=== PATIENT | male | born 1995 | race African-American/Black ===

== ENCOUNTER 2022-09-05 16:50 | Emergency (ER) | payer BC ==
[2022-09-05] MEDS ORDERED: KETOROLAC 30 MG/ML INJ ONE (17:42)
[2022-09-05] MEDS ORDERED: ACETAMINOPHEN 500 MG TAB ONE (17:42)
[2022-09-05] MEDS ORDERED: NA CHLORIDE 0.9% 1,000 ML ONE (17:42)
[2022-09-05 17:50] LABS: Absolute Lymphocytes (CBC) 2.8 K/uL (0.7-4.9); Hematocrit 41.9 % (39.6-49.0); Lymphocytes % 13.8 % (15.3-44.8); MCV 87.6 fL (80-100); MPV 8.3 fL (7.6-11.3); RBC Red Blood Cell Count 4.78 M/uL (4.33-5.43)
[2022-09-05 17:59] LABS: Potassium 3.4 mEq/L (3.5-5.1); Troponin High Sensitivity 3.2 pg/mL (<58.9)
[2022-09-05 18:19] LABS: SARS-CoV-2 Antigen Rapid Res Negative (Negative)
[2022-09-05] MEDS ORDERED: CEFTRIAXONE 1000 MG/VIAL ONE (18:41)
--- NOTE | 2022-09-05 18:42 | RAD REPORT ---
EXAM DESCRIPTION: RAD - Chest Pa And Lat (2 Views) - 09/05/2022 6:34 pm CLINICAL HISTORY: CHEST PAIN COMPARISON: <Comparisons> FINDINGS: Lines: None. Lungs: Masslike right mid lung opacity. Pleural: No significant pleural effusions or pneumothorax. Cardiac: The heart size is within normal limits. Mediastinum: Within normal limits. Bones: No acute fractures. Other: None IMPRESSION: Masslike opacity in the right mid lung could reflect pneumonia. A chest CT is pending.
[2022-09-05 19:30] LABS: Platelet Estimate ADEQ
[2022-09-05 19:31] LABS: Blood Morphology Comment NOT SEEN (NOT SEEN)
--- NOTE | 2022-09-05 19:42 | RAD REPORT ---
EXAM DESCRIPTION: CT - Chest For Pe Angio - 09/05/2022 7:23 pm CLINICAL HISTORY: CHEST PAIN COMPARISON: No comparisons TECHNIQUE: Dynamically enhanced axial 3 mm thick images of the chest were obtained during administra tion of <100> mL Isovue 370 IV contrast. Coronal and oblique reconstruction images were generated and reviewed. Exam utilizes a protocol for optimal evaluation of pulmonary arterial tree. Maximum intensity projections 3D imaging was utilized All CT scans are performed using dose optimization technique as appropriate and may include automated exposure control or mA/KV adjustment according to patient size. FINDINGS: Chest Wall: No suspicious thyroid nodules or pathologic lymphadenopathy. Lungs: Predominantly consolidative airspace disease is present in the right upper lobe with other pat francis areas of nodularity ground-glass opacities also in the right upper lobe. There are a few scattere d nodular ground-glass opacities in the lower lungs. Pleura: No significant effusions or pneumothorax. Mediastinum/garrick: No pathologic lymphadenopathy. Pulmonary arteries/Aorta: No filling defect identified. No aortic aneurysm. Heart: No significant pericardial effusion. Normal heart size. Upper abdomen: No acute abnormality. Bones: No acute abnormality. IMPRESSION: Negative for pulmonary embolism. Multifocal airspace disease, predominantly in the right upper lobe were there is consolidation, is most consistent with pneumonia. Recommend 6 week-3 month follow-up chest radiograph to ensure resolution.
--- NOTE | 2022-09-05 19:50 | EDPHYS ---
Physician Documentation [facility] Name: Tristan Kidd Age: 27 yrs Sex: Male : 1995 Arrival Date: 09/05/2022 Time: 16:50 Bed 14 Private MD: ED Physician David Conde HPI: 09/05 17:06 This 27 yrs old Black Male presents to ER via Unassigned with complaints of Chest Pain, bs3 Breathing Difficulty. 17:06 The patient or guardian reports chest pain that is located primarily in the anterior bs3 aspect of right upper chest. The pain does not radiate. Associated signs and symptoms: The patient has no apparent associated signs or symptoms. The chest pain is described as sharp. Duration: The patient or guardian reports a single episode, that is still ongoing, and unchanged. Modifying factors: the symptoms are aggravated by breathing. 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 . Historical: - Allergies: 17:12 No Known Allergies; nj1 - PMHx: 17:12 Diabetes mellitus; nj1 - PSHx: 17:13 Lung surgery; nj1 - Immunization history:: Client reports receiving the 2nd dose of the Covid vaccine. - Social history:: Smoking status: Patient denies any tobacco usage or history of. ROS: 17:07 Constitutional: Negative for fever, chills bs3 17:07 All other systems are negative. Exam: 17:07 Constitutional: This is a well developed, well nourished patient who is awake, alert, bs3 and in no acute distress. Head/Face: Normocephalic, atraumatic. Eyes: Pupils equal round and reactive to light, extra-ocular motions intact. Lids and lashes normal. ENT: mmm, no posterior phyarngeal erythema Chest/axilla: Normal chest wall appearance and motion. Nontender with no deformity. No lesions are appreciated. Cardiovascular: tachycardic, no murmur Respiratory: Lungs have equal breath sounds bilaterally, clear to auscultation, no respiratory distress MS/ Extremity: Pulses equal, no cyanosis. Neurovascular intact. Full, normal range of motion. Neuro: Awake and alert, GCS 15, oriented to person, place, time, and situation. Cranial nerves II-XII grossly intact. Motor strength 5/5 in all extremities. Sensory grossly intact. 19:23 Sinus tachycardia at [address] elevations or depressions QTc 420 as interpreted by bs3 myself Vital Signs: 17:09 BP 124 / 85; Pulse 109; Resp 18; Temp 100.9(O); Pulse Ox 100% ; Weight 101.15 kg; nj1 Height 6 ft. 0 in. ; Pain 4/10; 18:47 BP 114 / 76; Pulse 84; Resp 18; Temp 99.4(O); Pulse Ox 100% on R/A; mb9 20:01 BP 118 / 78; Pulse 74; Resp 16; mb9 17:09 Body Mass Index 30.24 (101.15 kg, 182.88 cm) [facility] 17:09 Pain Scale: Adult nj MDM: 16:55 Patient medically screened. bs3 17:07 Data reviewed: vital signs, nurses notes. ED course: 27-year-old with right-sided bs3 pleuritic chest pain he is tachycardic at rest on my evaluation he is otherwise low risk for pulmonary embolism we will send a D-dimer to rule this out will rule out pneumothorax will rule out myocarditis he had a slight cough it could be pleurisy from his coughing however his pain seems out of proportion for this he denies ripping or tearing pain denies numbness tingling or weakness in his extremities not consistent with an aortic dissection. 19:49 ED course: Patient found to have an elevated D-dimer therefore did a CTA his work-up bs3 was consistent with pneumonia he has diabetes but is otherwise healthy will start on antibiotics return precautions given family at bedside understands return precautions as well. 09/05 17:06 Order name: CBC with Diff; Complete Time: 19:45 bs3 09/05 17:06 Order name: BMP; Complete Time: 18:28 bs3 09/05 17:06 Order name: Troponin High Sensitivity; Complete Time: 18:28 bs3 09/05 17:06 Order name: BNP; Complete Time: 18:28 bs3 09/05 17:06 Order name: D-Dimer; Complete Time: 18:28 3 09/05 17:16 Order name: Influenza Screen (a \T\ B); Complete Time: 19:08 3 09/05 17:16 Order name: SARS-COV-2 Antigen Rapid; Complete Time: 18:28 3 09/05 18:30 Order name: Blood Culture Adult (2) 3 09/05 18:30 Order name: Lactate w/ 2H reflex if indic.; Complete Time: 19:20 3 09/05 19:31 Order name: Manual Differential; Complete Time: 19:45 EDMS 09/05 16:55 Order name: XRAY Chest Pa And Lat (2 Views); Complete Time: 19:08 3 09/05 18:29 Order name: CT Chest For PE Angio; Complete Time: 19:45 3 09/05 18:30 Order name: EKG; Complete Time: 18:30 3 09/05 16:55 Order name: EKG - Nurse/Tech; Complete Time: 17:32 3 09/05 18:30 Order name: Accucheck; Complete Time: 18:31 3 09/05 18:30 Order name: Cardiac monitoring; Complete Time: 18:31 3 09/05 18:30 Order name: IV Saline Lock - Large Bore; Complete Time: 18:31 3 09/05 18:30 Order name: Labs collected and sent; Complete Time: 18:31 3 09/05 18:30 Order name: O2 Per Protocol; Complete Time: 18:31 3 09/05 18:30 Order name: O2 Sat Monitoring; Complete Time: 18:31 3 09/05 18:30 Order name: Vital Signs; Complete Time: 18:31 bs3 Administered Medications: 17:43 Drug: Acetaminophen PO 1000 mg Route: PO; mb9 17:43 Drug: Ketorolac IVP 15 mg Route: IVP; Site: right antecubital; mb9 17:43 Drug: NS 0.9% IV 500 ml Route: IV; Rate: bolus; Site: right antecubital; mb9 18:48 Drug: Rocephin IV 1 grams Route: IV; Rate: 1 bolus; Site: right antecubital; mb9 19:59 Drug: AZITHromycin PO 500 mg Route: PO; mb9 Disposition Summary: 09/05/22 19:50 Discharge Ordered Location: Home bs3 Problem: new bs3 Symptoms: have improved bs3 Condition: Stable bs3 Diagnosis - Pneumonia, unspecified organism bs3 Followup: bs3 - With: Private Physician - When: 5 - 6 days - Reason: Re-evaluation by your physician Discharge Instructions: - Discharge Summary Sheet bs3 - Community-Acquired Pneumonia, Adult, Flli-ri-Tcwl bs3 Forms: - Work release form bs3 - Medication Reconciliation Form bs3 - Thank You Letter bs3 - Antibiotic Education bs3 - Prescription Opioid Use bs3 Prescriptions: - azithromycin 250 mg Oral tablet - take 1 tablet by ORAL route daily; 5 tablet; Refills: 0, Product Selection bs3 Permitted - Augmentin 875-125 mg Oral Tablet - take 1 tablet by ORAL route every 12 hours for 10 days; 20 tablet; Refills: 0, bs3 Product Selection Permitted Signatures: Dispatcher [employer] David Martinez MD MD bs3 Franci Jenkins RN RN mb9 Emilee Parker RN RN nj1
--- NOTE | 2022-09-05 19:50 | ER ---
Nurse's Notes [facility] Name: Tristan Kidd Age: 27 yrs Sex: Male : 1995 Arrival Date: 09/05/2022 Time: 16:50 Bed 14 Private MD: Diagnosis: Pneumonia, unspecified organism Presentation: 09/05 17:09 Chief complaint: Patient states: Chest pain since last night, got worse this morning. nj1 Unable to take a deep breath. Coronavirus screen: Vaccine status: Patient reports receiving the 2nd dose of the covid vaccine. Ebola Screen: Patient denies travel to an Ebola-affected area in the 21 days before illness onset. Initial Sepsis Screen: Does the patient meet any 2 criteria? HR > 90 bpm. No. Patient's initial sepsis screen is negative. Does the patient have a suspected source of infection? No. Patient's initial sepsis screen is negative. Risk Assessment: Do you want to hurt yourself or someone else? Patient reports no desire to harm self or others. Onset of symptoms was September 04, 2022. 17:09 Method Of Arrival: Ambulatory [facility] 17:09 Acuity: SOLANGE 3 nj1 Historical: - Allergies: 17:12 No Known Allergies; nj1 - PMHx: 17:12 Diabetes mellitus; nj1 - PSHx: 17:13 Lung surgery; nj1 - Immunization history:: Client reports receiving the 2nd dose of the Covid vaccine. - Social history:: Smoking status: Patient denies any tobacco usage or history of. Screenin:03 [facility] ED Fall Risk Assessment (Adult) History of falling in the last 3 months, 9 including since admission No falls in past 3 months (0 pts) Confusion or Disorientation No (0 pts) Intoxicated or Sedated No (0 pts) Impaired Gait No (0 pts) Mobility Assist Device Used No (0 pt) Altered Elimination No (0 pt) Score/Fall Risk Level 0 - 2 = Low Risk Oriented to surroundings, Maintained a safe environment, Educated pt \T\ family on fall prevention, incl call for assistance when getting out of bed. Abuse screen: Denies threats or abuse. Nutritional screening: No deficits noted. Tuberculosis screening: No symptoms or risk factors identified. Assessment: 18:00 General: Appears in no apparent distress. Pain: Complains of pain in anterior aspect of mb9 right upper chest Pain does not radiate. Pain currently is 7 out of 10 on a pain scale. Quality of pain is described as throbbing, Pain began suddenly. Neuro: Level of Consciousness is awake, alert, obeys commands, Oriented to person, place, time, situation, Appropriate for age. Cardiovascular: Heart tones S1 S2 present. Respiratory: Reports cough that is non-productive. GI: Abdomen is round non-distended, Reports nausea. Derm: Skin is pink, warm \T\ dry. Musculoskeletal: Range of motion: intact in all extremities. 20:00 Reassessment: No changes from previously documented assessment. Patient and/or family mb9 updated on plan of care and expected duration. Pain level reassessed. Patient is alert, oriented x 3, equal unlabored respirations, skin warm/dry/pink. Vital Signs: 17:09 BP 124 / 85; Pulse 109; Resp 18; Temp 100.9(O); Pulse Ox 100% ; Weight 101.15 kg; nj1 Height 6 ft. 0 in. ; Pain 4/10; 18:47 BP 114 / 76; Pulse 84; Resp 18; Temp 99.4(O); Pulse Ox 100% on R/A; mb9 20:01 BP 118 / 78; Pulse 74; Resp 16; mb9 17:09 Body Mass Index 30.24 (101.15 kg, 182.88 cm) nj1 17:09 Pain Scale: Adult ar1 ED Course: 16:53 Patient arrived in ED. mr 16:55 David Conde MD is Attending Physician. bs3 17:12 Triage completed. nj1 17:13 Arm band placed on right wrist. nj1 17:19 Franci Jenkins, MARIELA is Primary Nurse. mb9 17:32 D-Dimer Sent. zm 17:33 BNP Sent. zm 17:33 Troponin High Sensitivity Sent. zm 17:33 BMP Sent. zm 17:33 CBC with Diff Sent. zm 17:33 Inserted saline lock: 20 gauge in right antecubital area, using aseptic technique. zm Blood collected. 17:59 Placed in gown. Bed in low position. Call light in reach. Side rails up X 1. Client mb9 placed on continuous cardiac and pulse oximetry monitoring. NIBP monitoring applied. profiling machine operator on. 18:03 No provider procedures requiring assistance completed. mb9 18:03 Patient maintains SpO2 saturation greater than 95% on room air. mb9 18:35 XRAY Chest Pa And Lat (2 Views) In Process Unspecified. EDMS 18:35 First set of blood cultures drawn by me. mb9 18:45 Second set of blood cultures drawn by me. mb9 18:48 Blood Culture Adult (2) Sent. mb9 18:48 Lactate w/ 2H reflex if indic. Sent. mb9 19:25 CT Chest For PE Angio In Process Unspecified. EDMS 20:01 IV discontinued, intact, bleeding controlled, No redness/swelling at site. Pressure mb9 dressing applied. Administered Medications: 17:43 Drug: Acetaminophen PO 1000 mg Route: PO; mb9 17:43 Drug: Ketorolac IVP 15 mg Route: IVP; Site: right antecubital; mb9 17:43 Drug: NS 0.9% IV 500 ml Route: IV; Rate: bolus; Site: right antecubital; mb9 18:48 Drug: Rocephin IV 1 grams Route: IV; Rate: 1 bolus; Site: right antecubital; mb9 19:59 Drug: AZITHromycin PO 500 mg Route: PO; mb9 Medication: 18:03 VIS not applicable for this client. mb9 Outcome: 19:50 Discharge ordered by . bs3 20:01 Discharged to home ambulatory. mb9 20:01 Condition: stable 20:01 Discharge instructions given to patient, Instructed on discharge instructions, follow up and referral plans. Demonstrated understanding of instructions, follow-up care, medications, Prescriptions given X 2. 20:01 Patient left the ED. mb9 Signatures: Dispatcher [employer] Franci Griffith Zaina zm Stein, Brandon, MD MD bs3 Franci Jenkins, RN RN mb9 Emilee Parker RN RN nj1
[2022-09-05] MEDS ORDERED: AZITHROMYCIN 250 MG TAB ONE (20:00)
[2022-09-05 20:18] VITALS: O2SAT 100
[2022-09-05 20:24] VITALS: TEMP 99.4
[2022-09-05 20:30] VITALS: BP 118/78
--- NOTE | 2022-09-07 07:11 | EKG ---
Test Date: 2022-09-05 Test Time: 17:18:24 Dobby Loom Chain Pegger: EMILY MEASUREMENT RESULTS: Intervals: Rate: 112 RI: 130 QRSD: 82 QT: 308 QTc: 420 [place]: P: 48 RI: 130 QRS: 42 T: 17 INTERPRETIVE STATEMENTS: Sinus tachycardia Otherwise normal ECG No previous ECG available for comparison Electronically Signed On 09-07-22 07:07:02 CDT by Nolberto Murillo
== END 2022-09-05 20:01 | disposition home or self-care (01) ==
LOC: ER 16:50
DX: J18.9 Pneumonia, unspecified organism (principal); Z20.822 Contact with and (suspected) exposure to COVID-19; E11.9 Type 2 diabetes mellitus without complications
CPT/HCPCS: 93005; 87040 ×2; 85025; 80048; 36415; 85379; 83605; 84484; 83880; 87804 ×2; 71275; 71046; 96375; 96374; 99285; 87811; Q9967; J7030; J0696

== ENCOUNTER 2024-01-18 22:16 | Emergency (ER) | payer SELFPAY ==
[2024-01-18] MEDS ORDERED: SILVER SULFADIAZINE 1% 25 GM TOP ONE (22:28)
--- NOTE | 2024-01-18 22:39 | ER ---
Nurse's Notes [facility] Name: Tristan Kidd Age: 28 yrs Sex: Male : 1995 Arrival Date: 01/18/2024 Time: 22:16 Bed 12 Private MD: Diagnosis: Burn of second degree of left foot Presentation: 01/17 22:20 Chief complaint: Patient states: I got burned few days ago and I want the doctor to 1 follow up on my wound. 22:20 Coronavirus screen: Vaccine status: Patient reports being unvaccinated. Ebola Screen: ha1 No symptoms or risks identified at this time. Initial Sepsis Screen: Does the patient meet any 2 criteria? No. Patient's initial sepsis screen is negative. Does the patient have a suspected source of infection? No. Patient's initial sepsis screen is negative. Risk Assessment: Do you want to hurt yourself or someone else? Patient reports no desire to harm self or others. Onset of symptoms was January 18, 2024. 22:20 Method Of Arrival: Ambulatory 1 22:20 Acuity: SOLANGE 4 ha1 Triage Assessment: 22:20 General: Appears comfortable, Behavior is calm, cooperative. Pain: Complains of pain in ha1 left foot Pain does not radiate. Pain currently is 2 out of 10 on a pain scale. Quality of pain is described as burning, Pain began gradually. Neuro: Level of Consciousness is awake, alert, obeys commands, Oriented to person, place, time, situation. Cardiovascular: Capillary refill < 3 seconds Patient's skin is warm and dry. Respiratory: Airway is patent Respiratory effort is even, unlabored, Respiratory pattern is regular, symmetrical. GI: No signs and/or symptoms were reported involving the gastrointestinal system. Abdomen is round non-distended. Musculoskeletal: Circulation, motion, and sensation intact. Range of motion: intact in all extremities. Injury Description: Burn was sustained Patient sustained second-degree burn(s) to left foot. 22:20 Derm: Wound noted left foot Wound is covered with clean dry dressing. ha1 Historical: - Allergies: 22:37 No Known Allergies; ha1 - PMHx: 22:37 diabetes mellitus; ha1 - PSHx: 22:37 lung surgery; ha1 - Immunization history:: Adult Immunizations up to date. - Infectious Disease History:: Denies. - Social history:: Smoking status: Patient denies any tobacco usage or history of. - Family history:: not pertinent. Screenin:37 [facility] ED Fall Risk Assessment (Adult) History of falling in the last 3 months, ha1 including since admission No falls in past 3 months (0 pts) Confusion or Disorientation No (0 pts) Intoxicated or Sedated No (0 pts) Impaired Gait No (0 pts) Mobility Assist Device Used No (0 pt) Altered Elimination No (0 pt) Score/Fall Risk Level 0 - 2 = Low Risk Oriented to surroundings, Maintained a safe environment, Educated pt \T\ family on fall prevention, incl call for assistance when getting out of bed, Hourly rounding (assess needs \T\ fall precautionary measures) done. Abuse screen: Denies threats or abuse. Denies injuries from another. Nutritional screening: No deficits noted. Tuberculosis screening: No symptoms or risk factors identified. Vital Signs: 22:20 BP 153 / 101; Pulse 100; Resp 17 S; Temp 98.2; Pulse Ox 100% on R/A; Weight 95.25 kg; ha1 Height 6 ft. 0 in. ; Pain 10/10; 22:20 Body Mass Index 28.48 (95.25 kg, 182.88 cm) ha1 22:20 Pain Scale: Adult ha1 [place] Coma Score: 22:50 Eye Response: spontaneous(4). Motor Response: obeys commands(6). Verbal Response: sp4 oriented(5). Total: 15. ED Course: 22:19 Patient arrived in ED. jj6 22:20 Lonny Valdez MD is Attending Physician. sp4 22:20 Arm band placed on right wrist. ha1 22:20 Patient has correct armband on for positive identification. Bed in low position. Call ha1 light in reach. Side rails up X 1. Adult w/ patient. 22:27 Gardenia Gibbs RN is Primary Nurse. ha1 22:31 Triage completed. ha1 22:40 Wound care: to burn located on left foot was cleaned with soap and water, debrided ha1 using irrigated with normal saline, dressed with 4X4s, Kerlix. 23:06 No provider procedures requiring assistance completed. Patient did not have IV access ha1 during this emergency room visit. 23:07 Provided Education on: WOUND CARE . ha1 Administered Medications: 22:40 Drug: Silver SulfADIAZINE Topical Cream 1 % 1 application Topical once Route: Topical; ha1 Site: wound; 23:01 Follow up: Response: No adverse reaction ha1 Medication: 23:07 VIS not applicable for this client. ha1 Outcome: 22:38 Discharge ordered by . sp4 23:06 Discharged to home ambulatory, with family, ha1 23:06 Condition: stable 23:06 Discharge instructions given to patient, family, Instructed on discharge instructions, follow up and referral plans. medication usage, wound care, Demonstrated understanding of instructions, follow-up care, medications, wound care, 23:07 Patient left the ED. ha1 Signatures: Elsa Sierra jj6 Gardenia Gibbs RN RN ha1 Lonny Valdez MD MD sp4
--- NOTE | 2024-01-18 22:39 | EDPHYS ---
Physician Documentation [facility] Name: Tristan iKdd Age: 28 yrs Sex: Male : 1995 Arrival Date: 01/18/2024 Time: 22:16 Bed 12 Private MD: ED Physician Lonny Valdez HPI: 01/17 22:20 This 28 yrs old Black Male presents to ER via Unassigned with complaints of Burn. sp4 22:45 28-year-old male presents with left lower extremity second-degree curtis from 01/03/2024, sp4 patient sustained a grease burn at work 01/03/2024 was managed here for partial-thickness curtis left medial foot. Returns complaining of some leftover pain and requests burn check here in ER . . Historical: - Allergies: 22:37 No Known Allergies; ha1 - PMHx: 22:37 diabetes mellitus; ha1 - PSHx: 22:37 lung surgery; ha1 - Immunization history:: Adult Immunizations up to date. - Infectious Disease History:: Denies. - Social history:: Smoking status: Patient denies any tobacco usage or history of. - Family history:: not pertinent. ROS: 22:45 Constitutional: Negative for fever, chills, and weight loss, positive for left sp4 medial foot pain associated with recent second-degree burn. 22:45 All other systems are negative, Exam: 22:45 Constitutional: This is a well developed, well nourished patient who is awake, alert, sp4 and in no acute distress. Head/Face: Normocephalic, atraumatic. Eyes: Pupils equal round and reactive to light, extra-ocular motions intact. Lids and lashes normal. Conjunctiva and sclera are not injected. Cornea within normal limits. Periorbital areas with no swelling, redness, or edema. ENT: Nares patent. No nasal discharge, no septal abnormalities noted. Tympanic membranes are normal and external auditory canals are clear. Oropharynx with no redness, swelling, or masses, exudates, or evidence of obstruction, uvula midline. Mucous membranes moist. Neck: Trachea midline, no thyromegaly or masses palpated, and no cervical lymphadenopathy. Supple, full range of motion without nuchal rigidity, or vertebral point tenderness. Chest/axilla: Normal chest wall appearance and motion. Nontender with no deformity. No lesions are appreciated. Cardiovascular: Regular rate and rhythm with a normal S1 and S2. No gallops, murmurs, or rubs. Normal PMI, no JVD. No pulse deficits. Respiratory: Lungs have equal breath sounds bilaterally, clear to auscultation and percussion. No rales, rhonchi or wheezes noted. No increased work of breathing, no retractions or nasal flaring. Abdomen/GI: Soft, with normal bowel sounds. No distension or tympany. No guarding or rebound. No evidence of tenderness throughout. Back: No spinal tenderness. No costovertebral tenderness. Skin: Warm, dry with normal turgor. Normal color with no rashes, positive partial-thickness burn and healing stages left medial foot. No sign of circumferential burn no sign of third-degree burn/there is a healthy granulation tissue. Burn care was provided with Silvadene and dressing. MS/ Extremity: Pulses equal, no cyanosis. Neurovascular intact. Full, normal range of motion. Neuro: Awake and alert, GCS 15, oriented to person, place, time, and situation. Cranial nerves II-XII grossly intact. Motor strength 5/5 in all extremities. Sensory grossly intact. Psych: Awake, alert, with orientation to person, place and time. Behavior, mood, and affect are within normal limits Vital Signs: 22:20 BP 153 / 101; Pulse 100; Resp 17 S; Temp 98.2; Pulse Ox 100% on R/A; Weight 95.25 kg; ha1 Height 6 ft. 0 in. ; Pain 01/17; 22:20 Body Mass Index 28.48 (95.25 kg, 182.88 cm) ha 22:20 Pain Scale: Adult ha1 [place] Coma Score: 22:50 Eye Response: spontaneous(4). Motor Response: obeys commands(6). Verbal Response: sp4 oriented(5). Total: 15. MDM: 22:27 Patient medically screened. sp4 22:50 Differential diagnosis: 2nd degree curtis. Differential diagnosis: 1st degree curtis, 3rd sp4 degree curtis. Data reviewed: vital signs, nurses notes, old medical records. ED course: Burn appears to be healing stages without superinfection or cellulitis. Stable for discharge home after the burn care. . 01/17 22:20 Order name: Wound Care; Complete Time: 23:00 sp4 Administered Medications: 22:40 Drug: Silver SulfADIAZINE Topical Cream 1 % 1 application Topical once Route: Topical; ha1 Site: wound; 23:01 Follow up: Response: No adverse reaction ha1 Disposition Summary: 01/18/24 22:38 Discharge Ordered Problem: new sp4 Symptoms: have improved sp4 Condition: Stable sp4 Diagnosis - Burn of second degree of left foot sp4 Followup: sp4 - With: Private Physician - When: 7 - 10 days - Reason: Recheck today's complaints Discharge Instructions: - Discharge Summary Sheet sp4 - Burn Care, Adult, [id number] sp4 Forms: - Patient Portal Instructions sp4 Prescriptions: - Silvadene 1 % Topical cream - Apply to affected area 1 application TOPICAL route every 12 hours; 50 gram; sp4 Refills: 0, Product Selection Permitted Signatures: Gardenia Gibbs RN RN ha1 Lonny Valdez MD MD sp4
[2024-01-18 23:22] VITALS: BP 153/101; TEMP 98.2; O2SAT 100
== END 2024-01-18 23:07 | disposition home or self-care (01) ==
LOC: ER 22:16
DX: T25.222A Burn of second degree of left foot, initial encounter (principal)